=== PATIENT | female | born 1950 | race Asian ===

== ENCOUNTER 2018-08-17 18:23 | Emergency (ER) | payer SELFPAY ==
[2018-08-17] MEDS ORDERED: Triple Antibiotic 0.94 gm Pkt TP ONE (19:13)
--- NOTE | 2018-08-18 00:37 | ED Physician Chart ---
ED Chief Complaint/HPI - Patient Information Date Seen:: 08/17/18 Time Seen:: 18:30 Chief Complaint:: Chin Laceration History of Present Illness:: pt presents with a chin laceration after witnessed accidental trip and fall one hour [employer]; pt denies LOC, ALOC, AMS, syncope, N/V, decreased activity, visual or gait changes, H/As, neck pain, weakness, dizziness, paresthesias, vertigo, cough , C/P, SOB, Abd. Pain, A/N/V/D/C, fever, chills, or urinary s/s; pt's last tetanus shot: > 5 years Allergies:: Allergies Allergy/AdvReac Type Severity Reaction Status Date / Time No Known Allergies Allergy Verified 08/17/18 18:45 Vitals:: Vital Signs - 8 hr 08/17/18 08/17/18 18:32 19:22 Temp 98.1 F 98.1 F HR 75 75 RR 18 18 BP 143/86 143/86 O2 Sat % 99 98 Historian:: Patient, Family Member Review:: Nurse's Note Reviewed ED Review of Systems - Review of Systems General/Constitutional: No fever, No chills, No weight loss, No weakness, No diaphoresis, No edema, No loss of appetite Skin: No skin lesions, No rash, No bruising Head: No headache, No light-headedness Eyes: No loss of vision, No pain, No diplopia ENT: No earache, No nasal drainage, No sore throat, No tinnitus Neck: No neck pain, No swelling, No thyromegaly, No stiffness, No mass noted Cardio Vascular: No chest pain, No palpitations, No PND, No orthopnea, No edema Pulmonary: No SOB, No cough, No sputum, No wheezing GI: No nausea, No vomiting, No diarrhea, No pain, No melena, No hematochezia, No constipation, No hematemesis G/U: No dysuria, No frequency, No hematuria, No nacturia Machine Fancy Stitcher: No vaginal discharge, No abnormal vaginal bleed, No contraction Musculoskeletal: No bone or joint pain, No back pain, No muscle pain Endocrine: No polyuria, No polydipsia Psychiatric: No prior psych history, No depression, No anxiety, No suicidal ideation, No homicidal ideation, No auditory hallucination, No visual hallucination Hematopoietic: No bruising, No lymphadenopathy Allergic/Immuno: No urticaria, No angioedema Neurological: No syncope, No focal symptoms, No weakness, No paresthesia, No headache, No seizure, No dizziness, No confusion, No vertigo ED Past Medical History - Past Medical History Obtainable: Yes Past Medical History: No significant medical hx Family History: None Social History: Non Smoker, No Alcohol, No Drug Use, Surgical History: None Psychiatricy History: None Medication: Reviewed Family Medical History - Family Member Mother History Unknown: Yes ED Physical Exam - Physical Examination General/Constitutional: Awake, Well-developed, well-nourished, Alert, No distress, GCS 15, Non-toxic appearing, Ambulatory Head: Atraumatic Eyes: Lids, conjuctiva normal, PERRL, EOMI Skin: Nl inspection, No rash, No skin lesions, No ecchymosis, Well hydrated, No lymphadenopathy Other Skin comments:: 3.0cm Chin Laceration; good motor, tendon, and sensory functions; no FBs; good NV functions ENMT: External ears, nose nl, TM canals nl, Nasal exam nl, Lips, teeth, gums nl , Oropharynx nl, Tonsils nl Neck: Nontender, Full ROM w/o pain, No JVD, No nuchal rigidity, No bruit, No mass, No stridor Other Neck comments:: supple; no meningeal signs; no cervical tenderness; no bruits Respiratory: Nl effort/Exclusion, Clear to Auscultation, No Wheeze/Rhonchi/Rales Cardio Vascular: RRR, No murmur, gallop, rubs, NL S1 S2, Carotid/Femoral/Distal pulses equal bilaterally GI: No tenderness/rebounding/guarding, No organomegaly, No hernia, Normal BS's, Nondistended, No mass/bruits, No McBurney tenderness, Rectum exam nl Other GI comments:: no pulsatile masses : No CVA tenderness Extremities: No tenderness or effusion, Full ROM, normal strength in all extremities, No edema, Normal digits & nails Neuro/Psych: Alert/oriented, DTR's symmetric, Normal sensory exam, Normal motor strength, Judgement/insight normal, Mood normal, Normal gait, No focal deficits Other Neuro/Psych comments:: no focal signs Misc: Normal back, No paraspinal tenderness ED Labs/Radiology/EKG Results - Radiology Results Comments:: deferred by pt ED Assessment Location:: Chin Laceration Type:: Simple Wound Length: 3 cm Prep/Irrigation:: Thorough Cleansing and Irrigation with Betadine and Saline Inspection: No dirt/debris, Bases & margins visual, NO FB Local Anesthetic:: 1% Xylocaine 1.0cc sub-Q Suture Type and #: 6-0 Nylon Sutures x 6 Comments:: Neosporin Ointment and Dressing applied Post Procedure/Splint Exam: No Active Bleeding, Full Range of Motion, Neuro/ Vascular Exam Comments:: good NV functions; Td 0.5cc IM given; Rocephin 1.0gram IM given ED Septic Shock - . Is Septic Shock (SBP<90, OR Lactate>4 mmol\L) present?: No - <6hrs of presentation: Vital Signs: Vital Signs - 8 hr 08/17/18 08/17/18 18:32 19:22 Temp 98.1 F 98.1 F HR 75 75 RR 18 18 BP 143/86 143/86 O2 Sat % 99 98 ED Reassessment (Disposition) - Reassessment Reassessment:: pt is asymptomatic upon discharge Reassessment Condition:: Improved - Diagnosis Diagnosis:: Fall; Trauma; 3cm Chin Laceration - Aftercare/Follow up Instructions Aftercare/Follow-Up Instructions:: Counseled pt regarding lab results/diagnosis & need follow up, Refer to Discharge Instructions, Counseled pt & family regarding lab results/diagnosis & need follow up Medication Prescribed:: Rx: Keflex 500mg po tid x 10 days; Neosporin Ointment bid and dressing x 14 days ; Sutures to be removed in 4 days to 5 days; Wound Care and Head/Neck Injury Care Instructions - Patient Disposition Discharge/Transfer:: Home Condition at Disposition:: Stable, Improved (RTER prn if existing s/s reoccur and/or get worse and/or any other new s/s occur; ACIs given for all above Dx; Sutures to be removed in 4 days to 5 days; Refer to Facial/Plastic Surgeon/ Powerplant Operator HOLLIE; F/U with PMD in one day or prn; Have Wound Re-Checked in one day ; RTER prn if concerned)
== END 2018-08-17 19:30 | disposition home or self-care (01) ==
LOC: ER 18:23
DX: S01.81XA Laceration without foreign body of other part of head, initial encounter (principal); W01.0XXA Fall on same level from slipping, tripping and stumbling without subsequent striking against object, initial encounter; Y93.89 Activity, other specified; Y92.89 Other specified places as the place of occurrence of the external cause; Y99.8 Other external cause status
CPT/HCPCS: 99283; 12013; 90715; 96372; J0696; J2997; Z7502